=== PATIENT | female | born 1940 | race Native Hawaiian/Other Pacific Islander ===

== ENCOUNTER 2017-07-05 08:27 | Outpatient (CLI) | payer OTHER, MEDICARE | END 2017-07-05 19:09 | disposition home or self-care (01) | LOC: MAMMO 08:27 | DX: Z12.31 Encounter for screening mammogram for malignant neoplasm of breast (principal) ==

== ENCOUNTER 2019-08-15 08:59 | Outpatient (CLI) | payer OTHER | END 2019-08-15 19:34 | disposition home or self-care (01) | LOC: CT 08:59 | DX: I25.10 Atherosclerotic heart disease of native coronary artery without angina pectoris (principal); I77.89 Other specified disorders of arteries and arterioles; I10 Essential (primary) hypertension; E78.49 Other hyperlipidemia; Z95.2 Presence of prosthetic heart valve; H53.8 Other visual disturbances; R47.81 Slurred speech | CPT/HCPCS: 82565; 84520; Q9963 ==

== ENCOUNTER 2019-09-29 11:07 | Outpatient (CLI) | payer OTHER | END 2019-09-29 21:28 | disposition home or self-care (01) | LOC: MRI 11:07 | DX: R29.818 Other symptoms and signs involving the nervous system (principal) ==